=== PATIENT | female | born 1950 | race Caucasian/White ===

== ENCOUNTER 2018-01-05 21:49 | Inpatient (IN) | payer OTHER, MEDICARE ==
[~2018-01-05] VITALS: Ht 157.5 cm; Wt 76.7 kg
--- NOTE | 2018-01-05 21:58 | ED MVC/FALL/TRAUMA COMPLAINT ---
History of Present Illness General Chief Complaint: Fall Stated Complaint: FALL Source: patient, family, EMS Exam Limitations: no limitations Vital Signs & Intake/Output Vital Signs & Intake/Output Vital Signs Date Time Temp Pulse Resp B/P B/P Pulse O2 O2 Flow FiO2 Mean Ox Delivery Rate 01/06 0212 98.1 89 24 196/90 96 Room Air 01/06 0034 210/90 01/05 2334 97.8 92 18 196/100 01/05 2317 92 18 196/100 98 Room Air 01/05 2242 96 18 192/82 98 Room Air 01/05 2230 97 18 210/90 99 Room Air 01/05 2222 97 Room Air 01/05 2159 97.8 107 18 218/98 98 Room Air ED Intake and Output 01/06 0000 01/05 1200 Intake Total Output Total Balance Patient 220 lb Weight Weight Estimated Measurement Method Reconcile Medications No Known Home Medications Triage Nurses Notes Reviewed? yes Onset: Abrupt Duration: minute(s): (35), constant Timing: single episode today Severity: moderate, severe Injuries/Fall Location: lower extremity Method of Injury: fall Loss of Consciousness: no loss of consciousness No Modifying Factors: none HPI: 67-year-old female comes into the emergency room for further evaluation of left hip pain. Patient reports that she missed a step and fell down a few steps and came down her left hip. Denies hitting her head. She has not seen a physician and 35 years. She denies any headache chest pain shortness of breath vomiting. Denies any preceding lightheadedness dizziness or any other symptoms. (Jacoby Strange) Allergies Coded Allergies: Penicillins (UNKNOWN 01/06/18) shellfish derived (HIVES 01/05/18) (Reno ESCOTO,Walt Marshall) Past History Travel History Traveled to [place] past 21 day No Medical History Any Pertinent Medical History? none Surgical History Surgical History: non-contributory Family History Hx Contributory? No (Jacoby Strange) Review of Systems Review of Systems Constitutional: Reports: no symptoms. Eyes: Reports: no symptoms. Ears, Nose, Throat, Mouth: Reports: no symptoms. Respiratory: Reports: no symptoms. Cardiovascular: Reports: no symptoms. Gastrointestinal/Abdominal: Reports: no symptoms. Genitourinary: Reports: no symptoms. Musculoskeletal: Reports: see HPI. Skin: Reports: no symptoms. Neurological/Psychological: Reports: no symptoms. All Other Systems: Reviewed and Negative (Jacoby Strange) Physical Exam Physical Exam General Appearance: well developed/nourished, alert, awake Head: atraumatic, normal appearance Eyes: Bilateral: normal appearance, EOMI. Ears, Nose, Throat, Mouth: hearing grossly normal, moist mucous membrane Neck: normal inspection Respiratory: normal breath sounds, no respiratory distress Cardiovascular: regular rate/rhythm Extremities: left leg is shortened and externally rotated, tenderness over her left hip, severe limited range of motion, Neurologic/Psych: awake, alert, oriented x 3 Skin: intact, normal color Core Measures ACS in differential dx? No CVA/TIA Diagnosis No Sepsis Present: No Sepsis Focused Exam Completed? No (Jacoby Strange) Progress Differential Diagnosis: abd injury, C/T/L spine injury, ext injury, ICH, pelvis injury, pnemothorax, spinal cord injury Plan of Care: Orders Procedure Date/time Status Nothing by Mouth 01/06 B Active LIPID PANEL 01/06 0600 Active Weight 01/06 0246 Active Teach/Educate 01/06 0246 Active Pain Treatment and Response 01/06 0246 Active Nutritional Intake, Monitor 01/06 0246 Active Isolation 01/06 0246 Active Patient Care Conference 01/06 0246 Active Activity/Ambulation 01/06 0246 Active Pathway - chart 01/06 0233 Active Saline Lock 01/06 0232 Active Pathway - chart 01/06 0232 Active House Staff 01/06 0232 Active EKG 01/06 0232 Active Patient Data 01/06 0118 Active Saline Lock 01/06 0056 Active Misc Message 01/06 0056 Active ED Holding Orders 01/06 0056 Active Admit to inpatient 01/06 0056 Active Vital Signs 01/06 0056 Active Code Status 01/06 0056 Active Lab Add-on Test 01/06 UNK Active VTE Mechanical Prophylaxis 01/06 UNK Active CULTURE,URINE 01/05 2330 Active URINALYSIS 01/05 2330 Complete [place], Insertion/Removal/Asses 01/05 2328 Active TROPONIN LEVEL 01/05 2157 Complete PARTIAL THROMBOPLASTIN TIME 01/05 2157 Complete PROTHROMBIN TIME 01/05 2157 Complete COMPREHENSIVE METABOLIC PANEL 01/05 2157 Complete CBC WITHOUT DIFFERENTIAL 01/05 2157 Complete EKG 04/22 2157 Active TYPE & SCREEN (NOT X-MATCH) 01/05 2157 Complete Intake & Output 01/05 2151 Active Current Medications Sig/Jose Start time Last Medication Dose Stop Time Status Admin Labetalol HCl 100 MG BID 01/06 251 AC (Trandate) Acetaminophen 1,000 MG Q6P PRN 01/06 245 AC (Ofirmev) Dextrose/Sodium 1,000 ML Q13H 01/06 245 AC Chloride (D5W-1/2 Normal Saline 1000ML) Morphine Sulfate 2 MG Q4P PRN 01/06 245 AC (Morphine) Laboratory Tests 01/05/182329: Urine Color STRAW, Urine Clarity CLEAR, Urine pH 6.5, Ur Specific [place] 1.015, Urine Protein NEG, Urine Ketones NEG, Urine Nitrite POS H, Urine Bilirubin NEG, Urine Urobilinogen 0.2, Ur Leukocyte Esterase SMALL H, Ur Microscopic SEDIMENT EXAMINED, Urine WBC 1-3 H, Ur Epithelial Cells RARE, Urine Bacteria PACKD H, Urine Hemoglobin NEG, Urine Glucose NEG 01/05/182204: Anion Gap 12, Estimated GFR > 60, BUN/Creatinine Ratio 24.4, Glucose 117 H, Calcium 9.2, Total Bilirubin 0.5, AST 24, ALT 23, Alkaline Phosphatase 69, Troponin I < 0.01, Total Protein 7.7, Albumin 4.1, Globulin 3.6, Albumin/ Globulin Ratio 1.1, PT 11.0, INR 1.01, APTT 33, CBC w Diff NO MAN DIFF REQ, RBC 4.35, MCV 85.1, MCH 29.4, MCHC 34.5, RDW 14.0, MPV 7.4, Gran % 61.2, Lymphocytes % 29.7, Monocytes % 6.8, Eosinophils % 1.8, Basophils % 0.5, Absolute Granulocytes 4.9, Absolute Lymphocytes 2.4, Absolute Monocytes 0.5, Absolute Eosinophils 0.1, Absolute Basophils 0 Microbiology 01/05 2330 URINE ROUT: Urine Culture - RECD Diagnostic Imaging: Viewed by Me: Radiology Read. Discussed w/RAD: Radiology Read. Radiology Impression: PATIENT: RALU MCDONALD PRESENT AGE: 67 PATIENT ACCOUNT NO: [id number] : 50 LOCATION: [facility] ORDERING PHYSICIAN: Jacoby BARRON SERVICE DATE: 01/05/18 EXAM TYPE : RAD - XRY-CHEST XRAY, SINGLE VIEW EXAMINATION:\H\ \N\XR CHEST CLINICAL INFORMATION: Preoperative. COMPARISON: None TECHNIQUE: Frontal view of the chest was obtained. FINDINGS: The lungs are clear. No pleural effusion. Cardiomediastinal silhouette and pulmonary vasculature are within normal limits. No acute osseous finding of the chest. IMPRESSION: No acute cardiopulmonary disease. DICTATED BY: Cayetano Claros MD DATE/TIME DICTATED:01/05/182307 TILE MACHINE OPERATOR:AIDA DATE/TIME TRANSCRIBED:01/05/182307 CONFIDENTIAL, DO NOT COPY WITHOUT APPROPRIATE AUTHORIZATION. <Electronically signed in Other Vendor System> SIGNED BY: Cayetano Claros MD 01/05/182311, PATIENT: RAUL MCDONALD PRESENT AGE: 67 PATIENT ACCOUNT NO : [id number] : 50 LOCATION: [facility] ORDERING PHYSICIAN: Jacoby BARRON SERVICE DATE: 01/05/18 EXAM TYPE: RAD - XRY-AP PELVIS; XRY-HIP 2-3 VIEWS, LEFT EXAMINATION: XR HIP, LEFT XR PELVIS CLINICAL INFORMATION: Left hip pain status post fall. COMPARISON: None TECHNIQUE: Two views of the left hip. Single AP radiograph of the pelvis was also provided. FINDINGS: LEFT HIP: Displaced fracture of the lesser trochanter which is displaced up to 1.5 cm. There is also appears to be and intertrochanteric fracture extending through the greater tuberosity. Left hip joint spacing is preserved. 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 The remainder of the visualized pelvis is unremarkable. IMPRESSION: Intertrochanteric fracture of the left hip with mild displacement of the lesser trochanter. DICTATED BY: Cayetano Claros MD DATE/TIME DICTATED:01/05/182299 TILE MACHINE OPERATOR:AIDA DATE/TIME TRANSCRIBED:2299 CONFIDENTIAL, DO NOT COPY WITHOUT APPROPRIATE AUTHORIZATION. < Electronically signed in Other Vendor System> SIGNED BY: Cayetano Claros MD 01/05/182307 Initial ED EKG: normal sinus rhythm, rate (102) (Jacoby Strange) Departure Departure Disposition: STILL A PATIENT Condition: Stable Clinical Impression Primary Impression: Closed left hip fracture Referrals: Unknown Departure Forms: Customer Survey General Discharge Information Prescriptions: Current Visit Scripts No Known Home Medications Admission Note Spoke With: Jacob ESCOTO,Hank Documentation of Exam: Documentation of any treatments & extenuating circumstances including Concerns Regarding Discharge (functional status, medication knowledge or non-compliance, living conditions, etc.) that warrant an admission rather than observation: Patient will require orthopedic consultation. IV pain control. surgery. Physical therapy. medical clearance. blood pressure management. (Jacoby Strange) PA/TOOLMAN Co-Sign Statement Statement: ED Attending supervision documentation- [x] I saw and evaluated the patient. I have also reviewed all the pertinent lab results and diagnostic results. I agree with the findings and the plan of care as documented in the PA's/TOOLMAN's documentation. 01/06/18, 1:10am... pt resting comfortably.... hip fracture noted.... will optimize blood pressure, admit for pre-op clearance and surgical repair. [] I have reviewed the ED Record and agree with the PA's/TOOLMAN's documentation. [] Additions or exceptions (if any) to the PAs/TOOLMAN's note and plan are summarized below: [] ([place] ESCOTO,Walt Marshall) Critical Care Note Critical Care Note Critical Care Time: 30-74 min (35) (Jacoby Strange)
[2018-01-05 22:13] LABS: ABSOLUTE BASOPHIL COUNT 0 /CUMM (0.0-0.2); ABSOLUTE EOSINOPHIL COUNT 0.1 /CUMM (0.0-0.7); ABSOLUTE GRANULOCYTE CT 4.9 /CUMM (1.4-6.5); ABSOLUTE LYMPH COUNT 2.4 /CUMM (1.2-3.4); ABSOLUTE MONOCYTE COUNT 0.5 /CUMM (0.10-0.60); BASOPHIL % 0.5 % (0.0-2.0); EOSINOPHIL % 1.8 % (0-5); GRANULOCYTE % 61.2 % (42.2-75.2); MEAN CORPUSCULAR HGB 29.4 PG (27.0-31.0); MEAN CORPUSCULAR HGB CONC 34.5 G/DL (33.0-37.0); MEAN CORPUSCULAR VOLUME 85.1 FL (81.0-99.0); MEAN PLATELET VOLUME 7.4 FL (7.4-10.4); PLATELET COUNT 358 /CUMM (130-400); RED BLOOD CELL CT 4.35 /CUMM (4.20-5.40)
[2018-01-05 22:21] LABS: PTT 33 SEC (25-37)
--- NOTE | 2018-01-05 22:50 | Cons- Orthopedic ---
General Information and HPI Consulting Request Date of Consult: 01/05/18 Requested By: ANDERSON Urrutia, ED Reason for Consult: Left hip fracture History of Present Illness: 67yoF presents to ED BIBA this evening with complaints of left hip pain and inability to get up after mechanical fall at home. She tripped and fell over some stairs, landed on her left side. Denies head injury, LOC, dizziness, palps, cp, or sob at time of fall. Denies other injuries, No history of other recent falls. Denies surgical history. Denies medical history, though has not seen a MD in >30years. Of note, significantly hypertensive on arrival to ED, at 218/98. Denies other complaints at this time- no cp/sob/n/v/f/c/recent illnesses/sick contacts. Allergies/Medications Allergies: Coded Allergies: shellfish derived (HIVES 01/05/18) Home Med List: No Known Home Medications Past History Medical History Neurological: NONE Cardiovascular: NONE Respiratory: NONE Gastrointestinal: NONE Renal: NONE Musculoskeletal: NONE Endocrine: NONE Surgical History Pertinent Surgical History: none Psychosocial History Where Do You Live? 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 ttp L hip, skin intact, no ecchymosis. calves soft nt bl. palp dp bl. gross sensate intact bl, gross dorsi/ plantarflexion intact bl. Last 24 Hours of Labs: Laboratory Tests 01/05 2205 Chemistry Sodium (137 - 145 mmol/L) 141 Potassium (3.5 - 5.1 mmol/L) 3.7 Chloride (98 - 107 mmol/L) 101 Carbon Dioxide (22 - 30 mmol/L) 28 Anion Gap (5 - 16) 12 BUN (7 - 17 mg/dL) 22 H Creatinine (0.5 - 1.0 mg/dL) 0.9 Estimated GFR (>60 ml/min) > 60 BUN/Creatinine Ratio (7 - 25 %) 24.4 Glucose (65 - 99 mg/dL) 117 H Calcium (8.4 - 10.2 mg/dL) 9.2 Total Bilirubin (0.2 - 1.3 mg/dL) 0.5 AST (14 - 36 U/L) 24 ALT (9 - 52 U/L) 23 Alkaline Phosphatase (<127 U/L) 69 Troponin I (< 0.11 ng/ml) < 0.01 Total Protein (6.3 - 8.2 g/dL) 7.7 Albumin (3.5 - 5.0 g/dL) 4.1 Globulin (1.9 - 4.2 gm/dL) 3.6 Albumin/Globulin Ratio (1.1 - 2.2 %) 1.1 Coagulation PT (9.4 - 12.5 SEC) 11.0 INR (0.90 - 1.19) 1.01 APTT (25 - 37 SEC) 33 Hematology CBC w Diff NO MAN DIFF REQ WBC (4.8 - 10.8 /CUMM) 8.0 RBC (4.20 - 5.40 /CUMM) 4.35 Hgb (12.0 - 16.0 G/DL) 12.8 Hct (37 - 47 %) 37.0 MCV (81.0 - 99.0 FL) 85.1 MCH (27.0 - 31.0 PG) 29.4 MCHC (33.0 - 37.0 G/DL) 34.5 RDW (11.5 - 14.5 %) 14.0 Plt Count (130 - 400 /CUMM) 358 MPV (7.4 - 10.4 FL) 7.4 Gran % (42.2 - 75.2 %) 61.2 Lymphocytes % (20.5 - 51.1 %) 29.7 Monocytes % (1.7 - 9.3 %) 6.8 Eosinophils % (0 - 5 %) 1.8 Basophils % (0.0 - 2.0 %) 0.5 Absolute Granulocytes (1.4 - 6.5 /CUMM) 4.9 Absolute Lymphocytes (1.2 - 3.4 /CUMM) 2.4 Absolute Monocytes (0.10 - 0.60 /CUMM) 0.5 Absolute Eosinophils (0.0 - 0.7 /CUMM) 0.1 Absolute Basophils (0.0 - 0.2 /CUMM) 0 Imaging Results: SERVICE DATE: 01/05/18 EXAM TYPE: RAD - XRY-AP PELVIS; XRY-HIP 2-3 VIEWS, LEFT EXAMINATION: XR HIP, LEFT XR PELVIS CLINICAL INFORMATION: Left hip pain status post fall. COMPARISON: None TECHNIQUE: Two views of the left hip. Single AP radiograph of the pelvis was also provided. FINDINGS: LEFT HIP: Displaced fracture of the lesser trochanter which is displaced up to 1.5 cm. There is also appears to be and intertrochanteric fracture extending through the greater tuberosity. Left hip joint spacing is preserved. 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 The remainder of the visualized pelvis is unremarkable. IMPRESSION: Intertrochanteric fracture of the left hip with mild displacement of the lesser trochanter. Assessment/Plan Assessment/Plan A- 67F with left intertrochanteric hip fracture sp mechanical fall, with undiagnosed/untreated htn. P- -agree with medical admission, medical workup and treatment of HTN and any other undiagnosed comorbidities -pt will require operative intervention of fracture once medically optimized - NPO p mn - NWB LLE - prn pain meds - will dw Dr. Galicia Problem List: 1. Intertrochanteric fracture of left hip Consult Acknowledgment - Thank you for your consult request.
--- NOTE | 2018-01-05 23:08 | RADIOLOGY REPORT ---
EXAMINATION: XR HIP, LEFT XR PELVIS CLINICAL INFORMATION: Left hip pain status post fall. COMPARISON: None TECHNIQUE: Two views of the left hip. Single AP radiograph of the pelvis was also provided. FINDINGS: LEFT HIP: Displaced fracture of the lesser trochanter which is displaced up to 1.5 cm. There is also appears to be and intertrochanteric fracture extending through the greater tuberosity. Left hip joint spacing is preserved. 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 The remainder of the visualized pelvis is unremarkable. IMPRESSION: Intertrochanteric fracture of the left hip with mild displacement of the lesser trochanter.
--- NOTE | 2018-01-05 23:12 | RADIOLOGY REPORT ---
EXAMINATION:\H\ \N\XR CHEST CLINICAL INFORMATION: Preoperative. COMPARISON: None TECHNIQUE: Frontal view of the chest was obtained. FINDINGS: The lungs are clear. No pleural effusion. Cardiomediastinal silhouette and pulmonary vasculature are within normal limits. No acute osseous finding of the chest. IMPRESSION: No acute cardiopulmonary disease.
--- NOTE | 2018-01-06 01:12 | History & Physical ---
Liliana ESCOTO,[facility] 01/06/18 0112: General Information and HPI MD Statement: I have seen and personally examined RAUL MCDONALD and documented this H&P. The patient is a 67 year old F who presented with a patient stated chief complaint of [left hip pain]. Source of Information: patient, family Exam Limitations: no limitations History of Present Illness: 67 yo F with no known PMH presented to the ED after a mechanical fall earlier today. The patient states that earlier today she was walking down the stairs and missed a few steps, fell down and landed on her left hip. She denies hitting her head or losing consciousness with the fall. She called for her daughter who decided to bring her to the ED. No lightheadedness, dizziness, chest pain, palpitations preceeding the fall. The patient states that she has not seen a physician in over 34 years. She mentions her right knee is bad one and she avoids bearing weight on that knee. Takes a tylenol often at night which relieves her pain. At baseline the patient walks independently. Allergies/Medications Allergies: Coded Allergies: Penicillins (UNKNOWN 01/06/18) shellfish derived (HIVES 01/05/18) Home Med list No Known Home Medications Past History Travel History Traveled to [place] past 21 day No Medical History Neurological: NONE Cardiovascular: NONE Respiratory: NONE Gastrointestinal: NONE Renal: NONE Musculoskeletal: NONE Endocrine: NONE Surgical History Surgical History: N Past Family/Social History Psychosocial History Where do you live? 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 EENTM: Reports: no symptoms. Cardiovascular: Denies: chest pain, palpitations. Respiratory: Denies: cough, short of breath. GI: Reports: no symptoms. Genitourinary: Reports: no symptoms. Musculoskeletal: Reports: no symptoms. Skin: Reports: no symptoms. Neurological/Psychological: Denies: headache, numbness, paresthesia, tingling. Hematologic/Endocrine: Reports: no symptoms. Exam & Diagnostic Data Last 24 Hrs of Vital Signs/I&O Vital Signs Date Time Temp Pulse Resp B/P B/P Pulse O2 O2 Flow FiO2 Mean Ox Delivery Rate 01/06 0212 98.1 89 24 196/90 96 Room Air 01/06 0034 210/90 01/05 2334 97.8 92 18 196/100 01/05 2317 92 18 196/100 98 Room Air 01/05 2242 96 18 192/82 98 Room Air 01/05 2230 97 18 210/90 99 Room Air 01/05 2222 97 Room Air 01/05 2159 97.8 107 18 218/98 98 Room Air Intake & Output 01/06 0800 01/06 0000 01/05 1600 Intake Total Output Total Balance Patient 220 lb Weight Weight Estimated Measurement Method Physical Exam General Appearance Alert, Oriented X3, Cooperative, Mild Distress Skin No Rashes, No Breakdown Skin Temp/Moisture Exam: Warm/Dry Sepsis Skin Exam (color): Normal for Ethnicity HEENT Atraumatic Cardiovascular Normal S1, Normal S2, No Murmurs Lungs Clear to Auscultation, Normal Air Movement Abdomen Soft, No Tenderness Neurological Normal Speech Extremities b/l lower extremity pitting edema Last 24 Hrs of Labs/Jann: Laboratory Tests 01/05/182329: Urine Color STRAW, Urine Clarity CLEAR, Urine pH 6.5, Ur Specific [place] 1.015, Urine Protein NEG, Urine Ketones NEG, Urine Nitrite POS H, Urine Bilirubin NEG, Urine Urobilinogen 0.2, Ur Leukocyte Esterase SMALL H, Ur Microscopic SEDIMENT EXAMINED, Urine WBC 1-3 H, Ur Epithelial Cells RARE, Urine Bacteria PACKD H, Urine Hemoglobin NEG, Urine Glucose NEG 01/05/185: Anion Gap 12, Estimated GFR > 60, BUN/Creatinine Ratio 24.4, Glucose 117 H, Calcium 9.2, Total Bilirubin 0.5, AST 24, ALT 23, Alkaline Phosphatase 69, Troponin I < 0.01, Total Protein 7.7, Albumin 4.1, Globulin 3.6, Albumin/ Globulin Ratio 1.1, PT 11.0, INR 1.01, APTT 33, CBC w Diff NO MAN DIFF REQ, RBC 4.35, MCV 85.1, MCH 29.4, MCHC 34.5, RDW 14.0, MPV 7.4, Gran % 61.2, Lymphocytes % 29.7, Monocytes % 6.8, Eosinophils % 1.8, Basophils % 0.5, Absolute Granulocytes 4.9, Absolute Lymphocytes 2.4, Absolute Monocytes 0.5, Absolute Eosinophils 0.1, Absolute Basophils 0 Microbiology 01/05 2330 URINE ROUT: Urine Culture - RECD Assessment/Plan Assessment: 67 yo F with no known PMH presented to the ED after a mechanical fall earlier today. Assessment: 1. Left Hip Intertrochanteric fracture 2. Hypertensive Urgency Plan: * Admit patient to telemetry * Goal BP to reduce by 25% in 24-48 hours. * She has received labetalol and amlodipine in the ED, however, her BP is still significantly elevated at 196/90. * Will start her on Labetalol 100mg BID, with first dose now. If her blood pressure is still significantly elevated will give her IV push of Labetalol. Goal systolic 160-170mmHg * R/o ACS with serial trops and EKG. * Her RCRI is 0.4% risk of perioperative cardiac event * Echocardiogram to assess for LVH, LVEF. It is unknown the duration of her hypertension. * Ortho Consult * Nonweight bearing on left lower extremity for now. * Right knee xray to assess for OA. * Fall precautions * PT eval * Continue Quigley as patient will be unable to ambulate. * Obtain TFTs, Lipid panel, HbA1c, Vit D and B12 levels * Diet: NPO for now till surgery. Heart Healthy * DVT Prophylaxis: ALPS. * Code: Full Code As Ranked By This Provider Problem List: 1. Intertrochanteric fracture of left hip Core Measures/Misc (06/02) Acute Coronary Syndrome ACS Diagnosis: No Congestive Heart Failure Congestive Heart Failure Diagnosis No Cerebrovascular Accident CVA/TIA Diagnosis: No VTE (View Protocol) VTE Risk Factors Age>40 No Mechanical VTE Prophylaxis d/t N/A MechProphylax Ordered No VTE Pharm Prophylaxis d/t NA PharmProphylax ordered Sepsis (View protocol) Sepsis Present: No Micah Cui 01/06/18 0238: Resident Review Statement Resident Statement: examined this patient, discussed with wireless internet installer, agreed with wireless internet installer, discussed with family, reviewed EMR data (avail), discussed with nursing , discussed with case mgmt, reviewed images Other Findings: Mrs. Johnson is a 67-year-old healthy lady who came in to emergency department after pure mechanical fall found to have left hip fracture with mild displacement of the lesser trochanter, at ED she was noted to have hypertensive urgency her blood pressure was as high as 210/90 mmHg, she received 1 dose of amlodipine 5 mg and 1 dose of labetalol 10 mg IV however her blood pressure is still elevated. Prior to operation she needs her blood pressure to be stabilized and she needs preop clearance for the surgery her RCRI is 0.4, functional capacity more than 4 metabolic equivalents, will admit the patient to telemetry floor to control her blood pressure, will start labetalol 100mg BID, with iv hydralazine pushes as needed, she is nothing by mouth after midnight, will hydrate the patient with D5-1/5 NS @75ML/HR, will trend troponin and EKG, cardiology consult, will check lipid panel, TSH, T4, lipid panel, pain management with IV Tylenol and morphine as needed. DVT prophylaxis Alps for now , she is a full code. Jacob ESCOTO, [facility] 01/06/18 0404: Attending MD Review Statement Attending Statement Attending MD Statement: examined this patient, discuss w/resident/PA/MANAGER HEMATOLOGY, agreed w/resident/PA/MANAGER HEMATOLOGY, discussed with family, discussed with nursing, reviewed images , amended to note Attending Assessment/Plan: 67 yo F who has not seen a physician for over 34 years, has a strong family h/o CAD (father age 47, mother had CHF, brother has CAD), is brought in for evaluation of left hip pain after she trip and fell down the stairs at home. No head injury or LOC. Family reports that she has been having right knee pain and tends to avoid bearing weight on that knee, which could have precipitated this fall. She states she has a strong family h/o arthritis. She is not on any home medications, takes extra strength tylenol as needed. She denies lightheadedness, palpitations, chest pain or dyspnea prior to the event or on exertion. Able to carry out daily activities. Denies headache or blurry vision. Upon ER arrival, BP was 218/98. She received amlodipine 5 mg and IV labetalol x1. Vitals: afebrile, HR 90-100's, BP 210/90 -->196/90, sats 98% RA. Exam: AAO, in no distress, reports left hip pain only with movement, mucosa moist, Chest clear, Heart S1S2 regular, LLE: shortened and externally rotated, peripheral pulses well felt. No ecchymosis around left hip. LE: b/l 1+ pitting edema. Labs are remarkable for BUN 22, glucose 117, troponin negative. UA nitrite positive, LE small, WBC 1-3, packed bacteria. CXR: no acute process. Left hip/pelvis Xray: intertrochanteric fracture of left hip with mild displacement of the lesser trochanter. EKG: sinus tachycardia @ 102, no ST-T wav changes, Qtc 496 (no old EKG to compare). Assessment and plan: 1. Hypertensive urgency, undiagnosed hypertension 2. Mechanical fall 3. Left intertrochanteric hip fracture 4. Asymptomatic bacteriuria - Admit to Telemetry - Watch for arrhythmias - Fall precautions - NPO after midnight - Ortho consult for hip repair - Initiate labetalol 100 BID, can use IV labetalol and hydralazine to maintain a goal SBP of around 160 mmHg - Per RCRI, patient has zero risk factors placing her at 0.4% risk of perioperative cardiac event. We will medically optimize (BP control) prior to surgery. - Will obtain echo cardiogram to assess for LV function, LVH, pulmonary hypertension. - If BP remains uncontrolled, consider Cardio consult. - Check lipid panel, TSH, free T4, HbA1c, vit D and B12 levels - Pain management with IV morphine, tramadol and tylenol - Obtain right knee Xray to look for arthritic changes, my suspicion for acute event is low. - Eventual PT and STR DVT ppx Alps/ Hep SC if ok by surgery. Full code.
[2018-01-06 03:19] VITALS: BP 250/90
--- NOTE | 2018-01-06 04:05 | Admission Certification ---
Admission Certification Certification Statement - As attending physician, I certify that at the time of - admission, based on clinical presentation, severity of - symptoms, need for further diagnostic testing and - therapeutic interventions, and risk of adverse outcomes - without in-hospital treatment, in my clinical assessment, - this patient requires an acute hospital stay for a minimum - of two nights or longer. I have also considered psychsocial - factors such as support system, advanced age, financial - issues, cognitive issues, and failed out-patient treatments, - past re-admission history, safety of patient, and lack of - compliance as applicable. Specific rationale supporting this admission is: Hypertensive urgency, mechanical fall, left hip fracture.
[2018-01-06 07:16] VITALS: BP 160/80
--- NOTE | 2018-01-06 07:48 | PN- Orthopedic ---
Subjective Subjective: This is a 67-year-old female with left intratrochanteric hip fracture. She is preop for intramedullary nail of the hip. She feels well this morning and pain is controlled on Tylenol. She has had a few doses of morphine in between Review of Systems: Constitutional: No chills no fever no weakness HEENT: No blurred vision visual changes no throat pain nasal pain CV: denies chest pain edema orthopnea syncopal episode no peripheral edema Respiratory: No cough hemoptysis shortness of breath or wheeze GI: No abdominal pain bloating constipation or diarrhea or bloody stools no vomiting Musculoskeletal: pos left hip pain Skin: No recent acute changes in skin Neurological: No dizziness weakness or acute mental status changes Hematologic: no history of blood dyscrasia to include PE DVT or bleeding disorder No reported reaction to general anesthetics No recent fevers fluids or infections Admission Lab Results I reviewed the following labs: Laboratory Tests 01/06 01/06 01/06 0638 0600 0400 Chemistry Sodium Pending Potassium Pending Chloride Pending Carbon Dioxide Pending Anion Gap Pending BUN Pending Creatinine Pending BUN/Creatinine Ratio Pending Troponin I Pending Cancelled Triglycerides Cancelled Cholesterol Cancelled LDL Cholesterol, Calc Cancelled HDL Cholesterol Cancelled Cholesterol/HDL Ratio Cancelled 01/05 01/05 2330 2205 Chemistry Sodium (137 - 145 mmol/L) 141 Potassium (3.5 - 5.1 mmol/L) 3.7 Chloride (98 - 107 mmol/L) 101 Carbon Dioxide (22 - 30 mmol/L) 28 Anion Gap (5 - 16) 12 BUN (7 - 17 mg/dL) 22 H Creatinine (0.5 - 1.0 mg/dL) 0.9 Estimated GFR (>60 ml/min) > 60 BUN/Creatinine Ratio (7 - 25 %) 24.4 Glucose (65 - 99 mg/dL) 117 H Hemoglobin A1c (4.2 - 5.8 %) Pending Calcium (8.4 - 10.2 mg/dL) 9.2 Total Bilirubin (0.2 - 1.3 mg/dL) 0.5 AST (14 - 36 U/L) 24 ALT (9 - 52 U/L) 23 Alkaline Phosphatase (<127 U/L) 69 Troponin I (< 0.11 ng/ml) < 0.01 Total Protein (6.3 - 8.2 g/dL) 7.7 Albumin (3.5 - 5.0 g/dL) 4.1 Globulin (1.9 - 4.2 gm/dL) 3.6 Albumin/Globulin Ratio (1.1 - 2.2 %) 1.1 Triglycerides (<150 mg/dL) 141 Cholesterol (<200 MG/DL) 209 H LDL Cholesterol, Calc (65 - 129 mg/dL) 125 HDL Cholesterol (40 - 60 mg/dL) 56 Cholesterol/HDL Ratio (0.00 - 4.23 %) 4 Vitamin B12 (239 - 931 pg/mL) 268 25-OH Vitamin D Total (30 - 100 ng/ml) 10.3 L TSH (0.270 - 4.200 uIU/mL) 2.130 Thyroxine (T4) (4.5 - 10.9 ug/dL) 9.1 Total T3 (0.97 - 1.69 ng/mL) 1.25 Coagulation PT (9.4 - 12.5 SEC) 11.0 INR (0.90 - 1.19) 1.01 APTT (25 - 37 SEC) 33 Hematology CBC w Diff NO MAN DIFF REQ WBC (4.8 - 10.8 /CUMM) 8.0 RBC (4.20 - 5.40 /CUMM) 4.35 Hgb (12.0 - 16.0 G/DL) 12.8 Hct (37 - 47 %) 37.0 MCV (81.0 - 99.0 FL) 85.1 MCH (27.0 - 31.0 PG) 29.4 MCHC (33.0 - 37.0 G/DL) 34.5 RDW (11.5 - 14.5 %) 14.0 Plt Count (130 - 400 /CUMM) 358 MPV (7.4 - 10.4 FL) 7.4 Gran % (42.2 - 75.2 %) 61.2 Lymphocytes % (20.5 - 51.1 %) 29.7 Monocytes % (1.7 - 9.3 %) 6.8 Eosinophils % (0 - 5 %) 1.8 Basophils % (0.0 - 2.0 %) 0.5 Absolute Granulocytes (1.4 - 6.5 /CUMM) 4.9 Absolute Lymphocytes (1.2 - 3.4 /CUMM) 2.4 Absolute Monocytes (0.10 - 0.60 /CUMM) 0.5 Absolute Eosinophils (0.0 - 0.7 /CUMM) 0.1 Absolute Basophils (0.0 - 0.2 /CUMM) 0 Urines Urine Color (YEL,AMB,STR) STRAW Urine Clarity (CLEAR) CLEAR Urine pH (5.0 - 8.0) 6.5 Ur Specific [place] (1.001 - 1.035) 1.015 Urine Protein (NEG,<30 MG/DL) NEG Urine Ketones (NEG) NEG Urine Nitrite (NEG) POS H Urine Bilirubin (NEG) NEG Urine Urobilinogen (0.1 - 1.0 EU/dl) 0.2 Ur Leukocyte Esterase (NEG) SMALL H Ur Microscopic SEDIMENT EXAMINED Urine WBC (0 - 2 /HPF) 1-3 H Ur Epithelial Cells (NONE,FEW) RARE Urine Bacteria (NEG/NONE) PACKD H Urine Hemoglobin (NEG) NEG Urine Glucose (N MG/DL) NEG Objective Vital Signs and I&Os Vital Signs Date Time Temp Pulse Resp B/P B/P Pulse O2 O2 Flow FiO2 Mean Ox Delivery Rate 01/06 0716 98.0 73 20 160/80 96 01/06 0436 80 190/88 01/06 0332 92 250/90 01/06 0319 95 23 250/90 98 01/06 0251 Room Air 01/06 0212 98.1 89 24 196/90 96 Room Air 01/06 0034 210/90 01/05 2334 97.8 92 18 196/100 01/05 2317 92 18 196/100 98 Room Air 01/05 2242 96 18 192/82 98 Room Air 01/05 2230 97 18 210/90 99 Room Air 01/05 2222 97 Room Air 01/05 2159 97.8 107 18 218/98 98 Room Air Intake & Output 01/06 0800 01/06 0000 01/05 1600 01/05 0800 01/05 0000 01/04 1600 Intake Total 10 Output Total Balance 10 Intake, IV 10 Patient 176 lb 220 lb Weight Weight Reported by Patient Estimated Measurement Method Patient alert and oriented lying in bed comfortable without complaints vital signs are stable this morning with a systolic blood pressure in the 160s. Chest clear to auscultation symmetric without rales rhonchi or wheeze Heart regular rate rhythm without murmurs rubs gallops Abdomen soft without distention nontender positive bowel sounds Bilateral lower extremities left leg shortened and externally rotated tender to palpation along the groin and lateral hip area. Distal pulses intact sensorimotor intact Quigley catheter and placed Assessment/Plan Assessment/Plan Assessment and plan 67-year-old female with hypertensive urgency controlled, preop for ORIF of the hip. Awaiting echocardiogram and full clearance for surgery. She has been nothing by mouth DVT prophylaxis ALPS. Core Measures Venous Thromboembolism VTE Risk Factors Age>40 No Mechanical VTE Prophylaxis d/t N/A MechProphylax Ordered No VTE Pharm Prophylaxis d/t NA PharmProphylax ordered
--- NOTE | 2018-01-06 09:44 | PN- Att Addend ---
Attending Addendum Attending Brief Note Patient with low RCRI index, no chest pain, shortness of breath on exertion. She had good functional capacity. Patient is low risk for hip repair. Patient can be taken for OR repair now.
--- NOTE | 2018-01-06 10:12 | PN- Orthopedic ---
Surgical Brief Attending Note Brief Attending Note: I received a phone call concerning this patient this morning by the on-call orthopedic attending. Patient had sustained an intertrochanteric hip fracture yesterday was admitted to the medical service. Medical service has cleared the patient for surgery and will undergo procedure. Patient was checked out to me since I was in the operating room in order to avoid any delay. My understanding is she was to go for echocardiogram but medicine stated that patient did not require this for clearance. Patient had been cleared medically and wished to proceed. Consent will be obtained outside the operating room which will include risks benefits and expectations which included but were not limited to persistent hip pain, need for subsequent surgery, nonunion, malunion, injury to blood vessel or nerve, anesthesia risks, DVT. We'll proceed with ORIF this morning.
--- NOTE | 2018-01-06 14:00 | RADIOLOGY REPORT ---
EXAMINATION: XR HIP, LEFT CLINICAL INFORMATION: Status post revision of left total hip. COMPARISON: Left hip films dated 01/05/2018. TECHNIQUE: Frontal view of the left hip. FINDINGS: A compression hip screw is seen transfixing the comminuted intratrochanteric fracture of the left hip. Fracture fragments are in near-anatomic alignment. There is continued erosion and distraction of the lesser trochanter, which is displaced medially, similar to prior exam. The femoral head is normally located within the acetabulum. Osteopenia is seen. IMPRESSION: Near-anatomic alignment status post open reduction internal fixation of left hip fracture. The lesser trochanteric fragment remains medially distracted.
[2018-01-06 14:33] VITALS: BP 154/70
--- NOTE | 2018-01-06 15:58 | RADIOLOGY REPORT ---
EXAMINATION: CR LEFT HIP/INTRAOPERATIVE FLUOROSCOPY CLINICAL INDICATION: Left hip fracture. COMPARISON: Left hip films dated 01/05/2018. TECHNIQUE/FINDINGS: Fluoroscopic equipment was dedicated to the operating room for the performance of an intraoperative procedure. Several (5) spot films were acquired and are archived in PACS. Please refer to operative notes for procedural detail. FLUOROSCOPY TIME: 0.42 seconds. IMPRESSION: Administrative dictation for intraoperative fluoroscopy and image archiving in PACS. Please refer to operative notes for details.
--- NOTE | 2018-01-06 16:57 | PN- Orthopedic ---
Subjective Subjective: Post op check Awake and alert post op No complaints at this time Pain is tolerable Denies nausea Objective Vital Signs and I&Os Vital Signs Date Time Temp Pulse Resp B/P B/P Pulse O2 O2 Flow FiO2 Mean Ox Delivery Rate 01/06 1433 97.7 72 18 154/70 91 Room Air 01/06 0854 98.0 73 20 160/80 01/06 0716 98.0 73 20 160/80 96 01/06 0436 80 190/88 01/06 0332 92 250/90 01/06 0319 95 23 250/90 98 01/06 0251 Room Air 01/06 0212 98.1 89 24 196/90 96 Room Air 01/06 0034 210/90 01/05 2334 97.8 92 18 196/100 01/05 2317 92 18 196/100 98 Room Air 01/05 2242 96 18 192/82 98 Room Air 01/05 2230 97 18 210/90 99 Room Air 01/05 2222 97 Room Air 01/05 2159 97.8 107 18 218/98 98 Room Air Intake & Output 01/06 1600 01/06 0800 01/06 0000 01/05 1600 01/05 0800 01/05 0000 Intake Total 585 10 Output Total Balance 585 10 Intake, IV 525 10 Intake, Oral 60 Patient 176 lb 220 lb Weight Weight Reported by Patient Estimated Measurement Method Physical Exam: afebrile, vss General: alert and oriented times three Ext: warm, no edema, normosensate, good 5/5 MICHAEL LLE, no calf tenderness ALPS in place Wd: dressed, dry, ice pack in place Current Medications: Current Medications Sig/Jose Start time Last Medication Dose Route Stop Time Status Admin Acetaminophen 650 MG Q4P PRN 01/06 1300 AC PO Acetaminophen 1,000 MG Q6P PRN 01/06 0245 DC IV Acetaminophen 0 .STK-MED ONE 01/05 2209 DC IV Acetaminophen 1,000 MG ONCE ONE 01/05 2200 DC 01/05 N/A 1 UNIT IV 01/05 2214 2245 Amlodipine Besylate 5 MG DAILY 01/06 0900 AC 01/06 PO 0854 Amlodipine Besylate 0 .STK-MED ONE 01/055 DC PO Amlodipine Besylate 5 MG ONCE ONE 01/05 2315 DC 01/05 PO 01/06 2316 2334 Apixaban 2.5 MG BID 01/07 0900 AC PO Cefazolin Sodium 2 GM Q8H 01/06 1900 AC N/A 1 UNIT IV 01/07 0329 Cholecalciferol 2,000 IU DAILY 01/06 0900 AC 01/06 PO 0853 Dextrose/Sodium 1,000 ML Q13H 01/06 0245 DC Chloride IV Labetalol HCl 10 MG ONCE ONE 01/06 0330 DC 01/06 IV 01/06 0331 0332 Labetalol HCl 100 MG BID 01/06 0251 AC 01/06 PO 0854 Labetalol HCl 0 .STK-MED ONE 01/05 2209 DC IV Labetalol HCl 10 MG ONCE ONE 01/05 2200 DC 01/05 IV 01/05 2201 224 Morphine Sulfate 2 MG Q4P PRN 01/06 0245 DC IV Morphine Sulfate 0 .STK-MED ONE 01/06 0138 DC .ROUTE Morphine Sulfate 2 MG ONCE ONE 01/06 0130 DC 01/06 IV 01/06 013 0139 Morphine Sulfate 2 MG ONCE ONE 01/05 2315 DC IV 01/05 2316 Oxycodone/ 1 TAB Q4P PRN 01/06 1300 AC Acetaminophen PO Oxycodone/ 2 TAB Q4P PRN 01/06 1300 AC Acetaminophen PO Sodium Chloride 1,000 ML Q13H 01/06 1400 AC 01/06 IV 1432 Assessment/Plan Assessment/Plan 67yo female s/p L hip ORIF admitted in hypertensive crisis of 218/98 Pt will be nonweightbear to LLE Physical therapy to see and evaluate in am dc planning likely to rehab Pain management eliquis 2.5mg po bid beginning tomorrow for dvt ppx All other plans per medical team - htn management per medical team
[2018-01-06 20:46] VITALS: BP 180/108
[2018-01-06 23:32] VITALS: BP 150/70
[2018-01-07] VITALS (10 sets, daily range): BP systolic 136–240; BP diastolic 70–90
[2018-01-07 08:10] LABS: ABSOLUTE BASOPHIL COUNT 0 /CUMM (0.0-0.2); ABSOLUTE EOSINOPHIL COUNT 0 /CUMM (0.0-0.7); ABSOLUTE MONOCYTE COUNT 0.8 /CUMM (0.10-0.60); BASOPHIL % 0.2 % (0.0-2.0); EOSINOPHIL % 0 % (0-5); WHITE BLOOD CELL COUNT 11.7 /CUMM (4.8-10.8)
[2018-01-07 08:26] LABS: ABSOLUTE GRANULOCYTE CT 9.5 /CUMM (1.4-6.5); ABSOLUTE LYMPH COUNT 1.3 /CUMM (1.2-3.4); GRANULOCYTE % 81.6 % (42.2-75.2); MEAN CORPUSCULAR HGB 29.5 PG (27.0-31.0); MEAN CORPUSCULAR HGB CONC 33.8 G/DL (33.0-37.0); MEAN CORPUSCULAR VOLUME 87.2 FL (81.0-99.0); MEAN PLATELET VOLUME 7.9 FL (7.4-10.4); PLATELET COUNT 310 /CUMM (130-400); RBC DISTRIBUTION WIDTH 14.3 % (11.5-14.5)
[2018-01-07 08:31] LABS: HEMATOCRIT 29.6 % (37-47)
--- NOTE | 2018-01-07 08:37 | PN- Housestaff ---
Hugo ESCOTO,Arely 01/07/18 0837: Subjective Follow-up For: hypertensive urgency sp fall, left hip surgery Assessment/Plan Assessment: 67 yo F with no known PMH presented to the ED after a mechanical fall earlier today. Assessment: 1. Left Hip Intertrochanteric fracture 2. Hypertensive Urgency Plan: * Admit patient to telemetry * Goal BP to reduce by 25% in 24-48 hours. * She has received labetalol and amlodipine in the ED, however, her BP is still significantly elevated at 196/90. * Will start her on Labetalol 100mg BID, with first dose now. If her blood pressure is still significantly elevated will give her IV push of Labetalol. Goal systolic 160-170mmHg * R/o ACS with serial trops and EKG. * Her RCRI is 0.4% risk of perioperative cardiac event * Echocardiogram to assess for LVH, LVEF. It is unknown the duration of her hypertension. * Ortho Consult * Nonweight bearing on left lower extremity for now. * Right knee xray to assess for OA. * Fall precautions * PT eval * Continue Sanchez as patient will be unable to ambulate. * Obtain TFTs, Lipid panel, HbA1c, Vit D and B12 levels * Diet: NPO for now till surgery. Heart Healthy * DVT Prophylaxis: ALPS. * Code: Full Code Sharon Anderson 01/07/18 1211: Attending MD Review Statement Attending Statement Attending MD Statement: examined this patient, discuss w/resident/PA/HOT KNIFE FOXING CUTTER, agreed w/resident/PA/HOT KNIFE FOXING CUTTER, discussed with family, reviewed EMR data (avail), discussed with nursing, discussed with case mgmt, reviewed images, amended to note Attending Assessment/Plan: Patient with undiagnosed hypertension comes with acclerated hypertension and mechanical fall with hip fracture s/p repair 01/06/18. Orthopedics on board. Patient Bp mild elevated this morning. Increase amlodipine to 10 mg daily and continue with labetalol PO. PT consult, pain control, sanchez can be dced. Anticipate dc to STR and referral to PCP Dr Pino at discharge.
--- NOTE | 2018-01-07 09:56 | PN- Orthopedic ---
See Addendum Subjective Subjective: pt in bed, sanchez still in place. minimal pain, controlled with tylenol. tolerating diet, no BM denies paresthesias, cp/sob, fevers Objective Vital Signs and I&Os Vital Signs Date Time Temp Pulse Resp B/P B/P Pulse O2 O2 Flow FiO2 Mean Ox Delivery Rate 01/07 0827 Room Air 01/07 0816 98.1 93 18 172/80 96 Room Air 01/07 0431 77 156/70 01/07 0350 180/90 01/07 0337 46 240/70 01/07 0335 98.2 94 20 180/80 95 Room Air 01/07 0012 98.2 86 20 160/76 95 Room Air 01/06 2332 90 150/70 01/06 2122 90 160/68 01/06 2046 98.0 95 16 180/108 95 01/06 1433 97.7 72 18 154/70 91 Room Air Intake & Output 01/07 1600 01/07 0800 01/07 0000 01/06 1600 01/06 0800 01/06 0000 Intake Total 820 1125 585 10 Output Total 1000 1000 Balance -180 125 585 10 Intake, IV 700 525 525 10 Intake, Oral 120 600 60 Output, Urine 1000 1000 Patient 184 lb 176 lb 220 lb Weight Weight Reported by Patient Estimated Measurement Method Physical Exam: gen- NAD resp- clear cardiac-RRR abd- soft, NT ext- left hip soft, dressing clean and dry. distal sensory and motor function intact, 2+ DP pulse. no calf tenderness Current Medications: Current Medications Sig/Jose Start time Last Medication Dose Route Stop Time Status Admin Acetaminophen 650 MG Q4P PRN 01/06 1300 AC PO Acetaminophen 1,000 MG Q6P PRN 01/06 0245 DC IV Amlodipine Besylate 5 MG DAILY 01/06 09 AC 01/06 PO 0854 Apixaban 2.5 MG BID 01/07 09 AC PO Cefazolin Sodium 2 GM Q8H 01/06 1900 DC 01/07 N/A 1 UNIT IV 01/07 0329 0309 Cholecalciferol 2,000 IU DAILY 01/06 09 AC 01/06 PO 0853 Dexamethasone 8 MG .STK-MED ONE 01/06 1033 DC IM 01/06 1034 Fentanyl Citrate 250 MCG .STK-MED ONE 01/06 1031 DC IM 01/06 1032 Labetalol HCl 5 MG ONCE ONE 01/07 0400 CAN IV 01/07 0401 Labetalol HCl 100 MG BID 01/06 0251 AC 01/06 PO 2122 Midazolam HCl 2 MG .STK-MED ONE 01/06 1032 DC IM 01/06 1033 Morphine Sulfate 4 MG .STK-MED ONE 01/06 1341 DC IM 01/06 1342 Morphine Sulfate 4 MG .STK-MED ONE 01/06 1314 DC IM 01/06 1315 Morphine Sulfate 4 MG .STK-MED ONE 01/06 1257 DC IM 01/06 1258 Morphine Sulfate 8 MG .STK-MED ONE 01/06 1032 DC IM 01/06 1033 Morphine Sulfate 2 MG Q4P PRN 01/06 0245 DC IV Ondansetron HCl 4 MG .STK-MED ONE 01/06 1033 DC IM 01/06 1034 Oxycodone HCl 5 MG Q6P PRN 01/07 0945 AC PO Oxycodone/ 1 TAB Q4P PRN 01/06 1300 AC Acetaminophen PO Oxycodone/ 2 TAB Q4P PRN 01/06 1300 AC Acetaminophen PO Patient Medication 1 ED ONE ONE 01/06 1715 DC 01/06 Teaching ED 01/06 1716 1715 Senna/Docusate Sodium 2 TAB DAILY NEEDED PRN 01/07 1000 AC PO Sodium Chloride 1,000 ML Q13H 01/06 1400 DC 01/07 IV 0309 Results Last 48 Hours of Labs: Laboratory Tests 01/07 01/06 01/06 0610 0638 0600 Chemistry Sodium (137 - 145 mmol/L) 141 141 Potassium (3.5 - 5.1 mmol/L) 4.3 3.9 Chloride (98 - 107 mmol/L) 103 104 Carbon Dioxide (22 - 30 mmol/L) 26 23 Anion Gap (5 - 16) 12 13 BUN (7 - 17 mg/dL) 14 17 Creatinine (0.5 - 1.0 mg/dL) 0.7 0.6 Estimated GFR (>60 ml/min) > 60 > 60 BUN/Creatinine Ratio (7 - 25 %) 20.0 28.3 H Troponin I (< 0.11 ng/ml) < 0.01 Triglycerides Cancelled Cholesterol Cancelled LDL Cholesterol, Calc Cancelled HDL Cholesterol Cancelled Cholesterol/HDL Ratio Cancelled Hematology CBC w Diff NO MAN DIFF REQ WBC (4.8 - 10.8 /CUMM) 11.7 H RBC (4.20 - 5.40 /CUMM) 3.40 L Hgb (12.0 - 16.0 G/DL) 10.0 L Hct (37 - 47 %) 29.6 L MCV (81.0 - 99.0 FL) 87.2 MCH (27.0 - 31.0 PG) 29.5 MCHC (33.0 - 37.0 G/DL) 33.8 RDW (11.5 - 14.5 %) 14.3 Plt Count (130 - 400 /CUMM) 310 MPV (7.4 - 10.4 FL) 7.9 Gran % (42.2 - 75.2 %) 81.6 H Lymphocytes % (20.5 - 51.1 %) 11.1 L Monocytes % (1.7 - 9.3 %) 7.1 Eosinophils % (0 - 5 %) 0 Basophils % (0.0 - 2.0 %) 0.2 Absolute Granulocytes (1.4 - 6.5 /CUMM) 9.5 H Absolute Lymphocytes (1.2 - 3.4 /CUMM) 1.3 Absolute Monocytes (0.10 - 0.60 /CUMM) 0.8 H Absolute Eosinophils (0.0 - 0.7 /CUMM) 0 Absolute Basophils (0.0 - 0.2 /CUMM) 0 01/06 01/05 0400 2330 Chemistry Troponin I Cancelled Urines Urine Color (YEL,AMB,STR) STRAW Urine Clarity (CLEAR) CLEAR Urine pH (5.0 - 8.0) 6.5 Ur Specific [place] (1.001 - 1.035) 1.015 Urine Protein (NEG,<30 MG/DL) NEG Urine Ketones (NEG) NEG Urine Nitrite (NEG) POS H Urine Bilirubin (NEG) NEG Urine Urobilinogen (0.1 - 1.0 EU/dl) 0.2 Ur Leukocyte Esterase (NEG) SMALL H Ur Microscopic SEDIMENT EXAMINED Urine WBC (0 - 2 /HPF) 1-3 H Ur Epithelial Cells (NONE,FEW) RARE Urine Bacteria (NEG/NONE) PACKD H Urine Hemoglobin (NEG) NEG Urine Glucose (N MG/DL) NEG 01/05 2205 Chemistry Sodium (137 - 145 mmol/L) 141 Potassium (3.5 - 5.1 mmol/L) 3.7 Chloride (98 - 107 mmol/L) 101 Carbon Dioxide (22 - 30 mmol/L) 28 Anion Gap (5 - 16) 12 BUN (7 - 17 mg/dL) 22 H Creatinine (0.5 - 1.0 mg/dL) 0.9 Estimated GFR (>60 ml/min) > 60 BUN/Creatinine Ratio (7 - 25 %) 24.4 Glucose (65 - 99 mg/dL) 117 H Hemoglobin A1c (4.2 - 5.8 %) 5.7 Calcium (8.4 - 10.2 mg/dL) 9.2 Total Bilirubin (0.2 - 1.3 mg/dL) 0.5 AST (14 - 36 U/L) 24 ALT (9 - 52 U/L) 23 Alkaline Phosphatase (<127 U/L) 69 Troponin I (< 0.11 ng/ml) < 0.01 Total Protein (6.3 - 8.2 g/dL) 7.7 Albumin (3.5 - 5.0 g/dL) 4.1 Globulin (1.9 - 4.2 gm/dL) 3.6 Albumin/Globulin Ratio (1.1 - 2.2 %) 1.1 Triglycerides (<150 mg/dL) 141 Cholesterol (<200 MG/DL) 209 H LDL Cholesterol, Calc (65 - 129 mg/dL) 125 HDL Cholesterol (40 - 60 mg/dL) 56 Cholesterol/HDL Ratio (0.00 - 4.23 %) 4 Vitamin B12 (239 - 931 pg/mL) 268 25-OH Vitamin D Total (30 - 100 ng/ml) 10.3 L TSH (0.270 - 4.200 uIU/mL) 2.130 Thyroxine (T4) (4.5 - 10.9 ug/dL) 9.1 Total T3 (0.97 - 1.69 ng/mL) 1.25 Coagulation PT (9.4 - 12.5 SEC) 11.0 INR (0.90 - 1.19) 1.01 APTT (25 - 37 SEC) 33 Hematology CBC w Diff NO MAN DIFF REQ WBC (4.8 - 10.8 /CUMM) 8.0 RBC (4.20 - 5.40 /CUMM) 4.35 Hgb (12.0 - 16.0 G/DL) 12.8 Hct (37 - 47 %) 37.0 MCV (81.0 - 99.0 FL) 85.1 MCH (27.0 - 31.0 PG) 29.4 MCHC (33.0 - 37.0 G/DL) 34.5 RDW (11.5 - 14.5 %) 14.0 Plt Count (130 - 400 /CUMM) 358 MPV (7.4 - 10.4 FL) 7.4 Gran % (42.2 - 75.2 %) 61.2 Lymphocytes % (20.5 - 51.1 %) 29.7 Monocytes % (1.7 - 9.3 %) 6.8 Eosinophils % (0 - 5 %) 1.8 Basophils % (0.0 - 2.0 %) 0.5 Absolute Granulocytes (1.4 - 6.5 /CUMM) 4.9 Absolute Lymphocytes (1.2 - 3.4 /CUMM) 2.4 Absolute Monocytes (0.10 - 0.60 /CUMM) 0.5 Absolute Eosinophils (0.0 - 0.7 /CUMM) 0.1 Absolute Basophils (0.0 - 0.2 /CUMM) 0 Assessment/Plan Assessment/Plan 67yo female s/p L hip ORIF pod1 admitted in hypertensive crisis of 218/98 Pt will be nonweight bearing to LLE Physical therapy to see and evaluate today dc sanchez and IVF- reg diet dc planning likely to rehab Pain management eliquis 2.5mg po bid beginning tomorrow for dvt ppx All other plans per medical team - htn management per medical team dressing change POD2
--- NOTE | 2018-01-07 10:24 | ECHOCARDIOGRAM REPORT ---
RAUL MCDONALD Age: 67 : 1950 Gender: F Exam Date: 01/06/2018 19:50 Exam Location: 1 [address] Ht (in): 62 Wt (lb): 175 BSA: 1.90 BP: 160 / 80 Ordering Physician: Arely Arias MD Referring Physician: Arely rAias MD Technologist: Tatyana Tristan [facility] Room Number: [id number] Indications: HYPERTENSION Rhythm: Sinus Technical Quality: Good FINDINGS Left Ventricle Normal size left ventricle. Mild to moderate concentric left ventricular hypertrophy. Normal left ventricular ejection fraction visually estimated at >65 %. No obvious regional wall motion abnormalities. Abnormal relaxation filling pattern of the left ventricle for age (stage 1 diastolic dysfunction). Right Ventricle The right ventricle is normal in size and function. Right Atrium The right atrium is normal in size. Left Atrium The left atrium is normal in size. The interatrial septum is intact. Mitral Valve The mitral valve is normal in structure and function. There is no mitral regurgitation. Aortic Valve Focal thickening of the aortic valve cusps. No aortic stenosis. No aortic regurgitation. Tricuspid Valve The tricuspid valve is normal in structure and function. There is trace tricuspid regurgitation. Pulmonary artery systolic pressure is normal. Pulmonic Valve Structurally normal pulmonic valve. There is no pulmonic regurgitation. Pericardium Normal pericardium without effusion. No pleural effusion. Great Vessels Normal aortic root dimension. The aortic arch and great vessels are well seen and are normal. CONCLUSIONS Mild to moderate concentric left ventricular hypertrophy. Normal left ventricular ejection fraction visually estimated at >65 Abnormal relaxation filling pattern of the left ventricle for age (stage 1 diastolic dysfunction). The left atrium is normal in size. The mitral valve is normal in structure and function. There is no mitral regurgitation. Focal thickening of the aortic valve cusps. No aortic stenosis. Pulmonary artery systolic pressure is normal. Zeyad Cedeño M.D. (Electronically Signed) Final Date: 07 January 2018 10:24 MEASUREMENTS (Male / Female) Normal Values 2D ECHO LV Diastolic Diameter PLAX 4.5 cm 4.2 - 5.9 / 3.9 - 5.3 cm LV Systolic Diameter PLAX 2.6 cm 2.1 - 4.0 cm LV Fractional Shortening PLAX 42.2 % 25 - 46 % LV Ejection Fraction 2D Teich 73.4 % IVS Diastolic Thickness 1.3 cm LVPW Diastolic Thickness 1.3 cm LV Relative Wall Thickness 0.6 RV Internal Dim ED PLAX 3.4 cm 1.9 - 3.8 cm LVOT Diameter 2.2 cm Aortic Root Diameter 2.9 cm LA Systolic Diameter LX 3.2 cm 3.0 - 4.0 / 2.7 - 3.8 cm LA Volume 36.0 cm 18 - 58 / 22 - 52 cm Ascending Aorta Diameter 2.7 cm DOPPLER AV Peak Velocity 160.0 cm/s AV Peak Gradient 10.2 mmHg AV Mean Velocity 107.0 cm/s AV Mean Gradient 5.0 mmHg AV Velocity Time Integral 32.4 cm LVOT Peak Velocity 98.6 cm/s LVOT Peak Gradient 3.9 mmHg LVOT Mean Velocity 70.1 cm/s LVOT Mean Gradient 2.0 mmHg LVOT Velocity Time Integral 23.7 cm LVOT Stroke Volume 90.1 cm AV Area Cont Eq vti 2.8 cm AV Area Cont Eq pk 2.3 cm MV Peak Velocity 93.0 cm/s MV Peak Gradient 3.5 mmHg MV Mean Velocity 63.7 cm/s MV Mean Gradient 2.0 mmHg Mitral E Point Velocity 58.2 cm/s Mitral A Point Velocity 85.9 cm/s Mitral E to A Ratio 0.7 MV PHT Velocity 88.2 cm/s MV Deceleration [place] 499.0 cm/s MV Pressure Half Time 53.0 ms MV Area PHT 4.1 cm TR Peak Velocity 132.0 cm/s TR Peak Gradient 7.0 mmHg Right Atrial Pressure 5.0 mmHg Pulmonary Artery Systolic Pressu 12.0 mmHg Right Ventricular Systolic Press 12.0 mmHg PV Peak Velocity 123.0 cm/s PV Peak Gradient 6.1 mmHg PV Mean Velocity 80.8 cm/s PV Mean Gradient 3.0 mmHg PV Velocity Time Integral 23.8 cm LV E' Lateral Velocity 7.8 cm/s Mitral E to LV E' Lateral Ratio 7.5 LV E' Septal Velocity 6.0 cm/s Mitral E to LV E' Septal Ratio 9.6
--- NOTE | 2018-01-07 13:28 | Discharge Summary ---
Visit Information Visit Dates Admission Date: 01/06/18 Discharge Date: 01/09/2018 Hospital Course Course Attending Physician: Sharon Anderson MD Primary Care Physician: Dr. Pino Consulting Request: Consulting Specialty: Orthopedics Hospital Course: 67 yo F with no known PMH presented to the ED after a mechanical fall and found to have l. intertrochanteric fracture and hypertensive urgency. She was admitted to telemetry and her BP was pharmacologically managed. Subsequently went to OR for ORIF of l. hip w/o complications or excess blood loss. We started PO htn regimen. * Continue Amlodipine 10mg daily * Eliquis 2.5 BID for 6 wks for surgical anticoagulation * Continue low dose bennie inhibitor * Continue Labetalol 100mg bid * Tylenol for pain management * Follow up: With Dr. Rushing in 2 weeks, jh stay in a minimum of 14 days post op * Pt will likely require outpt work up of secondary hypertension if it is resistant to management. * Please follow up with office automation technician outpatient for re-evaluation of your hypertension management. Allergies: Coded Allergies: Penicillins (UNKNOWN 01/06/18) shellfish derived (HIVES 01/05/18) Significant Procedures: ORIF Pertinent Lab Results: ED Labs: 01/05/18 2330: Urine Color STRAW, Urine Clarity CLEAR, Urine pH 6.5, Ur Specific [place] 1.015, Urine Protein NEG, Urine Ketones NEG, Urine Nitrite POS H, Urine Bilirubin NEG, Urine Urobilinogen 0.2, Ur Leukocyte Esterase SMALL H, Ur Microscopic SEDIMENT EXAMINED, Urine WBC 1-3 H, Ur Epithelial Cells RARE, Urine Bacteria PACKD H, Urine Hemoglobin NEG, Urine Glucose NEG 01/05/18 2205: Anion Gap 12, Estimated GFR > 60, BUN/Creatinine Ratio 24.4, Glucose 117 H, Calcium 9.2, Total Bilirubin 0.5, AST 24, ALT 23, Alkaline Phosphatase 69, Troponin I < 0.01, Total Protein 7.7, Albumin 4.1, Globulin 3.6, Albumin/ Globulin Ratio 1.1, PT 11.0, INR 1.01, APTT 33, CBC w Diff NO MAN DIFF REQ, RBC 4.35, MCV 85.1, MCH 29.4, MCHC 34.5, RDW 14.0, MPV 7.4, Gran % 61.2, Lymphocytes % 29.7, Monocytes % 6.8, Eosinophils % 1.8, Basophils % 0.5, Absolute Granulocytes 4.9, Absolute Lymphocytes 2.4, Absolute Monocytes 0.5, Absolute Eosinophils 0.1, Absolute Basophils 0 PATIENT: RAUL MCDONALD PRESENT AGE: 67 PATIENT ACCOUNT NO: [id number] : 50 LOCATION: [facility] ORDERING PHYSICIAN: Arely Arias MD SERVICE DATE: 01/06/18 EXAM TYPE: CARD - ECHOCARDIOGRAM RAUL MCDONALD Age: 67 : 1950 Gender: F Exam Date: 01/06/2018 19:50 Exam Location: [place] Ht (in): 62 Wt (lb): 175 BSA: 1.90 BP: 160 / 80 Ordering Physician: Arely Arias MD Referring Physician: Arely Arias MD Technologist: Tatyana Tristan [facility] Room Number: [id number] Indications: HYPERTENSION Rhythm: Sinus Technical Quality: Good FINDINGS Left Ventricle Normal size left ventricle. Mild to moderate concentric left ventricular hypertrophy. Normal left ventricular ejection fraction visually estimated at >65 %. No obvious regional wall motion abnormalities. Abnormal relaxation filling pattern of the left ventricle for age (stage 1 diastolic dysfunction). Right Ventricle The right ventricle is normal in size and function. Right Atrium The right atrium is normal in size. Left Atrium The left atrium is normal in size. The interatrial septum is intact. Mitral Valve The mitral valve is normal in structure and function. There is no mitral regurgitation. Aortic Valve Focal thickening of the aortic valve cusps. No aortic stenosis. No aortic regurgitation. Tricuspid Valve The tricuspid valve is normal in structure and function. There is trace tricuspid regurgitation. Pulmonary artery systolic pressure is normal. Pulmonic Valve Structurally normal pulmonic valve. There is no pulmonic regurgitation. Pericardium Normal pericardium without effusion. No pleural effusion. Great Vessels Normal aortic root dimension. The aortic arch and great vessels are well seen and are normal. CONCLUSIONS Mild to moderate concentric left ventricular hypertrophy. Normal left ventricular ejection fraction visually estimated at >65 Abnormal relaxation filling pattern of the left ventricle for age (stage 1 diastolic dysfunction). The left atrium is normal in size. The mitral valve is normal in structure and function. There is no mitral regurgitation. Focal thickening of the aortic valve cusps. No aortic stenosis. Pulmonary artery systolic pressure is normal. Zeyad Cedeño M.D. (Electronically Signed) Final Date: 07 January 2018 10:24 MEASUREMENTS (Male / Female) Normal Values 2D ECHO LV Diastolic Diameter PLAX 4.5 cm 4.2 - 5.9 / 3.9 - 5.3 cm LV Systolic Diameter PLAX 2.6 cm 2.1 - 4.0 cm LV Fractional Shortening PLAX 42.2 % 25 - 46 % LV Ejection Fraction 2D Teich 73.4 % IVS Diastolic Thickness 1.3 cm LVPW Diastolic Thickness 1.3 cm LV Relative Wall Thickness 0.6 RV Internal Dim ED PLAX 3.4 cm 1.9 - 3.8 cm LVOT Diameter 2.2 cm Aortic Root Diameter 2.9 cm LA Systolic Diameter LX 3.2 cm 3.0 - 4.0 / 2.7 - 3.8 cm LA Volume 36.0 cm 18 - 58 / 22 - 52 cm Ascending Aorta Diameter 2.7 cm DOPPLER AV Peak Velocity 160.0 cm/s AV Peak Gradient 10.2 mmHg AV Mean Velocity 107.0 cm/s AV Mean Gradient 5.0 mmHg AV Velocity Time Integral 32.4 cm LVOT Peak Velocity 98.6 cm/s LVOT Peak Gradient 3.9 mmHg LVOT Mean Velocity 70.1 cm/s LVOT Mean Gradient 2.0 mmHg LVOT Velocity Time Integral 23.7 cm LVOT Stroke Volume 90.1 cm AV Area Cont Eq vti 2.8 cm AV Area Cont Eq pk 2.3 cm MV Peak Velocity 93.0 cm/s MV Peak Gradient 3.5 mmHg MV Mean Velocity 63.7 cm/s MV Mean Gradient 2.0 mmHg Mitral E Point Velocity 58.2 cm/s Mitral A Point Velocity 85.9 cm/s Mitral E to A Ratio 0.7 MV PHT Velocity 88.2 cm/s MV Deceleration [place] 499.0 cm/s MV Pressure Half Time 53.0 ms MV Area PHT 4.1 cm TR Peak Velocity 132.0 cm/s TR Peak Gradient 7.0 mmHg Right Atrial Pressure 5.0 mmHg Pulmonary Artery Systolic Pressu 12.0 mmHg Right Ventricular Systolic Press 12.0 mmHg PV Peak Velocity 123.0 cm/s PV Peak Gradient 6.1 mmHg PV Mean Velocity 80.8 cm/s PV Mean Gradient 3.0 mmHg PV Velocity Time Integral 23.8 cm LV E' Lateral Velocity 7.8 cm/s Mitral E to LV E' Lateral Ratio 7.5 LV E' Septal Velocity 6.0 cm/s Mitral E to LV E' Septal Ratio 9.6 DICTATED BY: Zeyad Cedeño MD, V. DATE/TIME DICTATED:01/07/181023 DIFFERENTIAL TESTER:SALDANA DATE/TIME TRANSCRIBED:01/07/181023 CONFIDENTIAL, DO NOT COPY WITHOUT APPROPRIATE AUTHORIZATION. <Electronically signed in Other Vendor System> SIGNED BY: Zeyad Cedeño MD, V. 01/07/181023 PATIENT: RAUL MCDONALD PRESENT AGE: 67 PATIENT ACCOUNT NO: [id number] : 50 LOCATION: [facility] ORDERING PHYSICIAN: Jacoby BARRON SERVICE DATE: 01/05/18 EXAM TYPE: RAD - XRY-AP PELVIS; XRY-HIP 2-3 VIEWS, LEFT EXAMINATION: XR HIP, LEFT XR PELVIS CLINICAL INFORMATION: Left hip pain status post fall. COMPARISON: None TECHNIQUE: Two views of the left hip. Single AP radiograph of the pelvis was also provided. FINDINGS: LEFT HIP: Displaced fracture of the lesser trochanter which is displaced up to 1.5 cm. There is also appears to be and intertrochanteric fracture extending through the greater tuberosity. Left hip joint spacing is preserved. 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 The remainder of the visualized pelvis is unremarkable. IMPRESSION: Intertrochanteric fracture of the left hip with mild displacement of the lesser trochanter. DICTATED BY: Cayetano Claros MD DATE/TIME DICTATED:01/05/182299 DIFFERENTIAL TESTER:RAD.SALDANA DATE/TIME TRANSCRIBED:01/05/182299 CONFIDENTIAL, DO NOT COPY WITHOUT APPROPRIATE AUTHORIZATION. <Electronically signed in Other Vendor System> SIGNED BY: Cayetano Claros MD 01/05/18 9321 Disposition Summary Disposition Principal Diagnosis: l. intertrochanteric fracture Additional Diagnosis: hypertensive urgency Discharge Disposition: SNF Discharge Instructions General Discharge Information Code Status: Full Code Patient's Diet: as tolerated Patient's Activity: as tolerated Follow-Up Instructions/Appts: see above Medications at Discharge Discharge Medications: Start taking the following new medications: Apixaban (Eliquis) 2.5 MG TABLET 1 Tablet ORAL TWICE DAILY Qty = 60 No Refills Comments: Last Taken: 01/09/18 Time: 8AM Amlodipine Besylate (Norvasc) 10 MG TABLET 1 Tablet ORAL DAILY Qty = 30 No Refills Comments: Last Taken: 01/09/18 Time: 8AM Acetaminophen (Tylenol) 325 MG TABLET 1 Tablet ORAL EVERY 4 HOURS NEEDED as needed for PAIN SCALE 1-3 (MILD) Qty = 30 No Refills Comments: Last Taken: 01/09/18 Time: 8AM Lisinopril (Lisinopril) 2.5 MG TABLET 1 Tablet ORAL DAILY Qty = 30 No Refills Comments: Last Taken: 01/09/18 Time: 8AM Copies To: Alvarez ESCOTO,Herve Attending Review Statement Documenting Attending: Monica ESCOTO,Sharon Other Findings: Patient with undiagnosed hypertension comes with acclerated hypertension and mechanical fall with hip fracture s/p repair 01/06/18. Orthopedics follow up at discharge. Eliquis as per ortho. Patient Bp controlled at discharge. Anticipate dc to STR and referral to PCP Dr Pino at discharge.
[2018-01-08 00:01] VITALS: BP 142/68
[2018-01-08 04:03] VITALS: BP 140/68
--- NOTE | 2018-01-08 07:41 | PN- Housestaff ---
Hugo ESCOTO,Arely 01/08/18 0740: Subjective Follow-up For: Left hip fracture hypertensive urgency Complaints: no complaints Tele-Events Since Last Visit: nsr 67-84 Subjective: patient notes some soreness at the surgical site. also notes some pain in the bakc and hip from continued sitting in bed. Review of Systems Constitutional: Reports: no symptoms. Cardiovascular: Reports: no symptoms. Respiratory: Reports: no symptoms. Gastrointestinal: Reports: no symptoms. Genitourinary: Reports: no symptoms. Musculoskeletal: Reports: back pain, joint pain. Skin: Reports: lesions. Neurological/Psychological: Reports: no symptoms. Objective Last 24 Hrs of Vital Signs/I&O Vital Signs Date Time Temp Pulse Resp B/P B/P Pulse O2 O2 Flow FiO2 Mean Ox Delivery Rate 01/08 1430 98.0 87 20 142/60 97 Room Air 01/08 0856 98.1 77 20 158/60 01/08 0856 77 158/60 01/08 0403 98.1 77 20 140/68 94 Room Air 01/08 0001 98.1 80 20 142/68 95 Room Air 01/07 2139 90 158/90 01/07 2010 98.2 90 20 158/90 95 01/07 1620 98.2 85 20 136/78 97 01/07 1448 98.0 82 18 152/72 96 Room Air Intake & Output 01/08 1600 01/08 0800 01/08 0000 Intake Total 110 400 Output Total 100 450 Balance 10 -50 Intake, IV 10 Intake, Oral 100 400 Output, Urine 100 450 Patient 169 lb Weight Physical Exam General Appearance: Alert, Oriented X3, Cooperative, No Acute Distress Skin: No Rashes, No Breakdown, No Significant Lesion Skin Temp/Moisture Exam: Warm/Dry HEENT: Atraumatic, EOMI, Mucous Membr. moist/pink Cardiovascular: Regular Rate, Normal S1, Normal S2, No Murmurs Lungs: Clear to Auscultation, Normal Air Movement Neurological: Normal Speech Extremities: No Clubbing, No Cyanosis, No Edema, Normal Pulses, surgical site tenderness and swelling Current Medications: Current Medications Sig/Jose Start time Last Medication Dose Route Stop Time Status Admin Acetaminophen 650 MG .STK-MED ONE 01/08 1103 DC PO 01/08 1104 Acetaminophen 650 MG .STK-MED ONE 01/07 2140 DC PO 04/24 2141 Acetaminophen 650 MG Q4P PRN 01/06 1300 AC 01/08 PO 1903 Amlodipine Besylate 10 MG DAILY 01/08 0900 AC 01/08 PO 0856 Apixaban 2.5 MG BID 01/07 0900 AC 01/08 PO 0856 Cholecalciferol 2,000 IU DAILY 01/06 0900 AC 01/08 PO 0855 Docusate Sodium 100 MG DAILY 01/07 1205 AC 01/08 PO 0856 Labetalol HCl 100 MG BID 01/06 0251 AC 01/08 PO 0856 Lisinopril 2.5 MG DAILY 01/08 1526 AC 01/08 PO 1903 Oxycodone HCl 5 MG Q6P PRN 01/07 0945 AC PO Oxycodone/ 1 TAB Q4P PRN 01/06 1300 AC Acetaminophen PO Oxycodone/ 2 TAB Q4P PRN 01/06 1300 AC Acetaminophen PO Polyethylene Glycol 17 GM DAILY 01/07 1205 AC 01/08 PO 0856 Senna/Docusate Sodium 2 TAB DAILY NEEDED PRN 01/07 1000 AC PO Last 24 Hrs of Lab/Jann Results Last 24 Hrs of Labs/Mics: Laboratory Tests 01/08/18624: CBC w Diff NO MAN DIFF REQ, RBC 3.39 L, MCV 86.8, MCH 29.9, MCHC 34.4, RDW 14.6 H, MPV 7.9, Gran % 64.2, Lymphocytes % 26.5, Monocytes % 7.8, Eosinophils % 1.1 , Basophils % 0.4, Absolute Granulocytes 5.6, Absolute Lymphocytes 2.3, Absolute Monocytes 0.7 H, Absolute Eosinophils 0.1, Absolute Basophils 0 Assessment/Plan Assessment: 67 yo F with no known PMH presented to the ED after a mechanical fall earlier today. Assessment: 1. Left Hip Intertrochanteric fracture 2. Hypertensive Urgency Plan: * Admit patient to telemetry * Goal BP to reduce by 25% in 24-48 hours. * She has received labetalol and amlodipine in the ED, however, her BP is still significantly elevated at 196/90. * Will start her on Labetalol 100mg BID, with first dose now. If her blood pressure is still significantly elevated will give her IV push of Labetalol. Goal systolic 160-170mmHg * R/o ACS with serial trops and EKG. * Her RCRI is 0.4% risk of perioperative cardiac event * Echocardiogram to assess for LVH, LVEF. It is unknown the duration of her hypertension. * Ortho Consult * Nonweight bearing on left lower extremity for now. * Right knee xray to assess for OA. * Fall precautions * PT eval * Continue Quigley as patient will be unable to ambulate. * Obtain TFTs, Lipid panel, HbA1c, Vit D and B12 levels * Diet: NPO for now till surgery. Heart Healthy * DVT Prophylaxis: ALPS. * Code: Full Code Sharon Anderson 01/08/18 1141: Attending MD Review Statement Attending Statement Attending MD Statement: examined this patient, discuss w/resident/PA/ENGAGEMENT DIRECTOR, agreed w/resident/PA/ENGAGEMENT DIRECTOR, discussed with family, reviewed EMR data (avail), discussed with nursing, discussed with case mgmt, reviewed images, amended to note Attending Assessment/Plan: Patient bp better with current bp meds. Continue current management, awaiting bed avalability at [facility]. DVT prophyalxis with NOAC as per orhtopedics. Dr Pino informed.
--- NOTE | 2018-01-08 08:16 | PN- Orthopedic ---
Surgical Brief Attending Note Brief Attending Note: Patient comfortable eating breakfast this morning. Some discomfort with changing positions. Afebrile Dressing clean Calf and thigh nontender Neuro intact Status post ORIF left hip fracture Stable.. PT/rehabilitation Anticoagulation
--- NOTE | 2018-01-08 08:24 | Operative Report ---
Operative/Inv Procedure Report Surgery Date: 01/06/18 Name of Procedure: ORIF left intertrochanteric hip fracture Pre-Operative Diagnosis: Displaced left intertrochanteric hip fracture Post-Operative Diagnosis: Same Estimated Blood Loss: 50ml to 100ml Surgeon/Knit Tubing Dyer: Raghu Rushing MD Anesthesia: laryngeal mask airway Implants: [place] hip compression screw and sideplate-95 mm screw,, 3-hole 1:30 degree sideplate, 3 bicortical screws and 1 compression screw Drains: None Specimens: None Complications: None Condition: Stable Operative Indication: Patient is a 67-year-old woman who fell at home injuring her left hip. She was found to have a displaced and comminuted intertrochanteric subtrochanteric hip fracture. She was admitted to the medical service due to uncontrolled hypertension. She was evaluated and treated medically and cleared for surgery. I was contacted by the on-call physician from the previous evening that patient was admitted to medicine and would need surgery. I evaluated patient and evaluated x-rays. I recommended ORIF of left hip fracture. Risks benefits and expectations of the surgical procedure were discussed which included but were not limited to persistent hip pain, need for subsequent surgery, malunion, nonunion, DVT, injury to blood vessel or nerve, anesthesia risks. She wished to proceed with ORIF Operative/Procedure Note Note: Patient was brought to the operating room and transferred to the operating table. Once under appropriate anesthesia the left lower extremity was prepped and draped in standard fashion. The hip was reduced under fluoroscopy to check for any issues with reducing the fracture. Preoperative IV antibiotics were given prophylactically. A standard lateral incision was made over the greater trochanter. The incision was taken down sharply to the underlying fascia. The fascia was incised in line with the skin incision. The vastus lateralis was elevated off of the lateral aspect of the proximal femur exposing the insertion site of the anticipated hardware. A guidewire was used to locate the starting hole. The guidewire was taken across the lateral aspect of the femur into the femoral neck and into the femoral head. Due to the type of fracture, I did use a crutch to elevate the fracture site to anatomically reduce the fracture. Once I confirmed this and I confirm the position of the guidewire, I was satisfied. Measurements were taken and then the appropriate length compression screw was placed across the fracture after reaming over the guidewire. The 3-hole 130 degree side plate was used. I confirm that the plate was sitting properly on the proximal femur. I then placed 3 bicortical screws in standard fashion. Once I was satisfied with the construct I released the traction and placed the final compression screw through the construct. Final AP lateral images were obtained. I was satisfied with the hardware position and reduction of the fracture. Copious irrigation followed. I then closed the fascia over the vastus lateralis in anatomic fashion with a running suture. The fascia overlying this was closed with interrupted #1 Vicryl suture. Subcutaneous tissues closed in 2 layers with 2-0 Vicryl and skin was closed with jh. Appropriate dressings were applied and patient was awakened and taken to recovery in good condition. Blood loss was approximately 50 mL. No intraoperative Complications Discharge Disposition: PACU
--- NOTE | 2018-01-08 08:42 | PN- Orthopedic ---
Subjective Subjective: No acute overnight events. Pt c/o pain with position changes but states it has been managed for now with tylenol prn. Denies chest pain, shortness of breath and difficulty breathing. Denies nausea and vomitting. Is nwb, has been oob to chair. Objective Vital Signs and I&Os Vital Signs Date Time Temp Pulse Resp B/P B/P Pulse O2 O2 Flow FiO2 Mean Ox Delivery Rate 01/08 0403 98.1 77 20 140/68 94 Room Air 01/08 0001 98.1 80 20 142/68 95 Room Air 01/07 2139 90 158/90 01/07 2010 98.2 90 20 158/90 95 01/07 1620 98.2 85 20 136/78 97 01/07 1448 98.0 82 18 152/72 96 Room Air 01/07 1420 Room Air 01/07 1300 98.4 84 18 148/70 97 Room Air Room Air 01/07 1016 93 180/78 01/07 1016 93 180/78 Intake & Output 01/08 1600 01/08 0800 01/08 0000 01/07 1600 01/07 0800 01/07 0000 Intake Total 110 400 709 547 3360 Output Total 100 084 971 7369 1000 Balance 10 -50 -200 -180 125 Intake, IV 10 700 525 Intake, Oral 100 400 500 120 600 Output, Urine 100 324 012 2108 1000 Patient 169 lb 184 lb Weight Physical Exam: General alert and oriented x3, no acute distress Cardiac RRR, s1s2 Pulm: CTA, non-labored respiratory effort Abd: Non-tender, non-distended Ext: Moves all extremities, nv status grossly intact, no rotational deformities , bilateral calves soft and non-tender Surgical site: Left hip: dressing changed, skin edges well approximated with jh, no drainage, no erythema, no ecchymosis, thigh compartment soft. New dressing applied. Assessment/Plan Assessment/Plan 67 year old female, POD 2, s/p ORIF left hip fx -Daily dry dressing changes, keep wound clean and dry, no ointments on or near wound -NWB -DVT ppx: Eliquis 2.5 bid x6 weeks -Follow up: With Dr. Rushing in 2 weeks, jh stay in a minimum of 14 days post op -Can be discharged to [facility] when medically appropriate, medicine to remain primary team Surgery will remain available for consultation as needed
[2018-01-08 08:50] LABS: ABSOLUTE BASOPHIL COUNT 0 /CUMM (0.0-0.2); ABSOLUTE EOSINOPHIL COUNT 0.1 /CUMM (0.0-0.7); ABSOLUTE GRANULOCYTE CT 5.6 /CUMM (1.4-6.5); ABSOLUTE LYMPH COUNT 2.3 /CUMM (1.2-3.4); ABSOLUTE MONOCYTE COUNT 0.7 /CUMM (0.10-0.60); BASOPHIL % 0.4 % (0.0-2.0); EOSINOPHIL % 1.1 % (0-5); GRANULOCYTE % 64.2 % (42.2-75.2); HEMATOCRIT 29.4 % (37-47); MEAN CORPUSCULAR HGB 29.9 PG (27.0-31.0); MEAN CORPUSCULAR HGB CONC 34.4 G/DL (33.0-37.0); MEAN CORPUSCULAR VOLUME 86.8 FL (81.0-99.0); MEAN PLATELET VOLUME 7.9 FL (7.4-10.4); PLATELET COUNT 315 /CUMM (130-400); RBC DISTRIBUTION WIDTH 14.6 % (11.5-14.5); RED BLOOD CELL CT 3.39 /CUMM (4.20-5.40); WHITE BLOOD CELL COUNT 8.8 /CUMM (4.8-10.8)
[2018-01-08] MEDS ORDERED: TYLENOL325 M1 PO (11:56)
[2018-01-08] MEDS ORDERED: ELIQUIS2.5 M1 PO (11:56)
[2018-01-08] MEDS ORDERED: NORVASC10 M1 PO (11:56)
--- NOTE | 2018-01-08 12:03 | Patient Discharge Instructions ---
Discharge Instructions General Discharge Information You were seen/treated for: 1. Fracture 2. Hypertension You had these procedures: 1. ORIF 2. BP monitoring and control Watch for these problems: 1. bleeding from surgical site 2. surgical wound infection 3. fever 4. dizziness 5. chest pain 6. shortness of breath Call Surgeon to remove: Other, follow up for post-op care Special Instructions: 1. Please follow up with a pcp in one week for further monitoring of BP and your new regimen 2. You will likely need further work up of etiology of hypertension 3. Please follow up with the surgeon for management of the surgical site 4. Please continue the anticoagulant for the amount of time prescribed by the surgeon Diet Continue normal diet: No Recommended Diet: Heart Healthy Activity Activity Self Limited: Yes Acute Coronary Syndrome Inclusion Criteria At DC or during hospital stay patient has or had the following: ACS DIAGNOSIS No Discharge Core Measures Meds if any: Prescribed or Continued at Discharge Meds if any: NOT Prescribed or Continued at Discharge Congestive Heart Failure Inclusion Criteria At DC or during hospital stay patient has or had the following: CHF DIAGNOSIS No Discharge Core Measures Meds if any: Prescribed or Continued at Discharge Meds if any: NOT Prescribed or Continued at Discharge Cerebrovascular accident Inclusion Criteria At DC or during hospital stay patient has or had the following: CVA/TIA Diagnosis No Discharge Core Measures Meds if any: Prescribed or Continued at Discharge Meds if any: NOT Prescribed or Continued at Discharge Venous thromboembolism Inclusion Criteria VTE Diagnosis No VTE Type NONE VTE Confirmed by (Test) NONE Discharge Core Measures - Per Current guidelines, there needs to be overlap - treatment for the first 5 days of Warfarin therapy. - If discharged on Warfarin prior to 5 days of - overlap therapy, the patient will need to be - assessed for post discharge needs including - *Post discharge parental anticoagulation - *Warfarin and/or parental anticoagulation education - *Follow up date to check INR post discharge At least 5 days overlap therapy as Inpatient No Meds if any: Prescribed or Continued at Discharge Note: Overlap Therapy is Warfarin and Anticoagulant Meds if any: NOT Prescribed or Continued at Discharge
[2018-01-08 14:30] VITALS: BP 142/60
[2018-01-08 17:20] VITALS: BP 142/60
[2018-01-08 22:35] VITALS: BP 140/70
[2018-01-09 06:50] VITALS: BP 150/70
[2018-01-09 08:30] VITALS: BP 148/56
[2018-01-09] MEDS ORDERED: LISINOPRIL2.5 M1 PO (08:37)
--- NOTE | 2018-01-09 09:00 | PN- Housestaff ---
Hugo ESCOTO,Arely 01/09/18 0900: Subjective Follow-up For: Left hip fracture Hypertensive urgency Complaints: no complaints Tele-Events Since Last Visit: Normal sinus rhythm 61-73 Subjective: Patient states that she is feeling good. Has some tenderness at the surgical site. States that she slept well last night. Has not had a bowel movement in 2 days. Review of Systems Constitutional: Reports: no symptoms. Cardiovascular: Reports: no symptoms. Respiratory: Reports: no symptoms. Gastrointestinal: Reports: constipation. Genitourinary: Reports: no symptoms. Musculoskeletal: Reports: see HPI, joint pain, muscle pain. Objective Last 24 Hrs of Vital Signs/I&O Vital Signs Date Time Temp Pulse Resp B/P B/P Pulse O2 O2 Flow FiO2 Mean Ox Delivery Rate 01/09 0833 87 148/56 01/09 0833 87 148/56 01/09 0832 87 148/56 01/09 0830 87 148/56 01/09 0800 Room Air 01/09 0650 98.5 85 20 150/70 95 Room Air 01/08 2235 98.4 84 20 140/70 96 Room Air 01/08 2205 87 142/60 01/08 1903 87 142/60 01/08 1720 98.0 87 20 142/60 01/08 1430 98.0 87 20 142/60 97 Room Air Intake & Output 01/09 1600 01/09 0800 01/09 0000 Intake Total 110 400 Output Total 600 Balance 110 -200 Intake, IV 10 Intake, Oral 100 400 Output, Urine 600 Physical Exam General Appearance: Alert, Oriented X3, Cooperative, No Acute Distress Skin: No Rashes, No Breakdown, No Significant Lesion Skin Temp/Moisture Exam: Warm/Dry HEENT: Atraumatic, EOMI, Mucous Membr. moist/pink Cardiovascular: Regular Rate, Normal S1, Normal S2, No Murmurs Lungs: Clear to Auscultation, Normal Air Movement Abdomen: Normal Bowel Sounds, Soft, No Tenderness Neurological: Normal Speech Extremities: No Clubbing, No Cyanosis, No Edema, Normal Pulses Vascular: Normal Pulses, Pulses Symmetrical Current Medications: Current Medications Sig/Jose Start time Last Medication Dose Route Stop Time Status Admin Acetaminophen 650 MG .STK-MED ONE 01/08 190 DC PO 01/08 190 Acetaminophen 650 MG Q4P PRN 01/06 1300 AC 01/09 PO 0835 Amlodipine Besylate 10 MG DAILY 01/08 0900 AC 01/09 PO 0832 Apixaban 2.5 MG BID 01/07 0900 AC 01/09 PO 0832 Cholecalciferol 2,000 IU DAILY 01/06 0900 AC 01/09 PO 0833 Docusate Sodium 100 MG DAILY 01/07 1205 AC 01/09 PO 0832 Labetalol HCl 100 MG BID 01/06 0251 AC 01/09 PO 0833 Lisinopril 2.5 MG DAILY 01/08 1526 AC 01/09 PO 0833 Magnesium Hydroxide 30 ML ONE PRN 01/09 1000 AC PO Oxycodone HCl 5 MG Q6P PRN 01/07 0945 AC PO Oxycodone/ 1 TAB Q4P PRN 01/06 1300 AC Acetaminophen PO Oxycodone/ 2 TAB Q4P PRN 01/06 1300 AC Acetaminophen PO Polyethylene Glycol 17 GM DAILY 01/07 1205 AC 01/08 PO 0856 Senna/Docusate Sodium 2 TAB DAILY NEEDED PRN 01/07 1000 AC PO Last 24 Hrs of Lab/Jann Results Last 24 Hrs of Labs/Mics: Laboratory Tests 01/09/18 0628: Anion Gap 12, Estimated GFR > 60, BUN/Creatinine Ratio 33.3 H Assessment/Plan Assessment: 67 yo F with no known PMH presented to the ED after a mechanical fall earlier today. Assessment: 1. Left Hip Intertrochanteric fracture 2. Hypertensive Urgency Plan: * Continue monitoring on telemetry until patient is discharged today. * Blood pressure overnight was 150/70, previous reading was 140/70, good blood pressure control. All other vitals are normal. * Continue patient on labetalol 100 mg twice a day, we added a small dose, 2.5 mg of lisinopril last night as cardioprotective as well. BP this morning was normal. * We ruled out ACS with serial trops and EKG. * Her RCRI is 0.4% risk of perioperative cardiac event prior to her surgery * Echocardiogram to assess for LVH, LVEF showed mild to moderate concentric left ventricular hypertrophy with a normal ejection fraction in stage I diastolic dysfunction. It is unknown the duration of her hypertension. * Orthopedics has placed the patient nonweight bearing with Eliquis 2.5 mg twice a day for 6 weeks and to follow-up with Dr. Rushing in 2 weeks, jh stay in a minimum of 14 days post op * Fall precautions * PT eval for the patient says [facility] and patient is set to go today Diet: Heart Healthy DVT Prophylaxis: ALPS. Code: Full Code Problem List: 1. Hypertensive urgency 2. Intertrochanteric fracture of left hip Pain Ratin Pain Location: Left hip Pain Goal: Pain 4 or less Pain Plan: Tylenol, patient does not like opiates. Tomorrow's Labs & Rationales: None as patient is being discharged Consulting Request: Consulting Specialty: Orthopedics Sharon Anderson 01/09/18 1441: Attending MD Review Statement Attending Statement Attending MD Statement: examined this patient, discuss w/resident/PA/UNIVERSITY TEACHER, agreed w/resident/PA/UNIVERSITY TEACHER, discussed with family, reviewed EMR data (avail), discussed with nursing, discussed with case mgmt, reviewed images, amended to note Attending Assessment/Plan: Patient with no new compliants. Plan for dc to [facility]. Miralax prn at discharge.
[2018-01-09 14:13] VITALS: BP 122/56
[2018-01-09 14:20] VITALS: BP 142/60
== END 2018-01-09 16:12 | DRG 482 ==
LOC: ERH 21:49 → 1NO 01-06 00:56 → ERHI 01-06 00:56 → ENRESERV 01-06 02:12 → 1NO 01-06 03:14 → ENTRNSPT 01-06 14:02 → EDTRNSPT 01-06 14:07 → EDTRNSPTSTS 01-06 14:07 → CMPTRNSPT 01-06 14:29 → ENPENDDIS 01-09 14:17 → 1NO 01-09 16:12
PROVIDERS: Physician Assistant Medical; Student in an Organized Health Care Education/Training Program
PROC: 0QS704Z Reposition Left Upper Femur with Internal Fixation Device, Open Approach (ICD-10-PCS; principal; 2018-01-06)
DX: S72.142A Displaced intertrochanteric fracture of left femur, initial encounter for closed fracture (principal); I16.0 Hypertensive urgency; W10.9XXA Fall (on) (from) unspecified stairs and steps, initial encounter; Y93.89 Activity, other specified; Y92.018 Other place in single-family (private) house as the place of occurrence of the external cause
CPT/HCPCS: 1NSP; 36592; 71045; 72170; 73501; 73502-LT; 81001; 82436; 87086; 93005; 93010; 93306; 96374; 96375; 97110-GO; 97116-GO; 97161-GP; 97530-GO; 99291; C1713; J0131; J0690; J1100; J2405; J7042